=== PATIENT | female | born 1940 | race Caucasian/White ===

== ENCOUNTER → 2016-06-15 | Outpatient (CLI) | payer OTHER ==
[~2016-06-15] MED LIST: MULT-506 PO; OXYC-57 PO
[2016-06-15 12:48] LABS: BASO % 2.2 %; BASO ABS # 0.12 K/uL (0-0.2); COMPLETE YES; HEMATOCRIT 40.1 % (37-47); IG% 0.2 %; LYMPH % 36.3 %; LYMPH ABS # 1.95 K/uL (1.2-3.4); MEAN CELL VOLUME 96.6 fL (80-100); MEAN CORPUSCULAR HGB CONC 33.2 g/dl (32-36); MEAN PLATELET VOLUME 9.7 fL (7.4-10.4); MONO % 9.1 %; NEUT % 47.2 %; PLATELET COUNT 259 K/uL (130-400); RED BLOOD COUNT 4.15 M/uL (4.2-5.4); WHITE BLOOD COUNT 5.37 K/uL (4.8-10.8)
[2016-06-15 13:38] LABS: ESTIMATED AVERAGE GLUCOSE 128 mg/dl; HA1C FLAG Normal (Normal)
[2016-06-15 13:52] LABS: ALT/SGPT 21 U/L (12-78); AST/SGOT 15 U/L (15-37); BLOOD UREA NITROGEN 21 mg/dl (7-18); CALCIUM 8.8 mg/dl (8.5-10.1); CARBON DIOXIDE 28 mmol/L (21-32); CHLORIDE 107 mmol/L (98-107); CHOLESTEROL 190 mg/dl (0-200); CREATININE 0.74 mg/dl (0.60-1.20); GLUCOSE 95 mg/dl (70-99); POTASSIUM 4.1 mmol/L (3.5-5.1); SODIUM 141 mmol/L (136-145); TRIGLYCERIDES 77 mg/dl (0-150); VERY LOW DENSITY LIPOPROT CALC 15 mg/dl
[2016-06-15 13:56] LABS: ALB/GLOB RATIO 1.3 (0.9-2); ALKALINE PHOSPHATASE 78 U/L (45-117); CHOLESTEROL/HDL RATIO 3.1; HDL CHOLESTEROL 61 mg/dl
--- NOTE | 2016-06-25 06:26 | CODING QUERY MEDICAL NECESSITY ---
CQSUPPORTING DIAGNOSIS NEEDED A supporting diagnosis is required for the test/procedure performed on this patient in order for us to be reimbursed by the patient's insurance. Please provide a supporting diagnosis for the following test/procedure listed below next to the test name along with your signature. *If there is no additional diagnosis for this patient that would support the following test/procedure please document that below next to the test/procedure. Test(s)/Procedure(s) that require a supporting diagnosis: DOS 06/15/16 GLYCATED HEMOGLOBIN Provider Signature: Date: Thank you Adina Donovan [employer] Once completed, please kindly fax back to [phone] For questions please call [phone]
== END | disposition home or self-care (01) ==
LOC: C.LABSPEC 12:08
PROVIDERS: ATTEND Internal Medicine
DX: E78.5 Hyperlipidemia, unspecified (principal); R93.9 Diagnostic imaging inconclusive due to excess body fat of patient; E55.9 Vitamin D deficiency, unspecified; Z85.3 Personal history of malignant neoplasm of breast; Z12.4 Encounter for screening for malignant neoplasm of cervix; Z78.0 Asymptomatic menopausal state; R53.83 Other fatigue

== ENCOUNTER → 2016-06-15 | Outpatient (CLI) | payer OTHER | END | disposition home or self-care (01) | LOC: C.PAPS 14:59 | PROVIDERS: ATTEND Internal Medicine | DX: Z12.4 Encounter for screening for malignant neoplasm of cervix (principal); Z78.0 Asymptomatic menopausal state ==

== ENCOUNTER → 2016-06-16 | Outpatient (CLI) | payer OTHER | END | disposition home or self-care (01) | LOC: C.LABSPEC 12:31 | PROVIDERS: ATTEND Internal Medicine | DX: Z12.11 Encounter for screening for malignant neoplasm of colon (principal) ==

== ENCOUNTER → 2016-06-26 | Outpatient (CLI) | payer OTHER ==
--- NOTE | 2016-06-26 13:32 | MAMMOGRAPHY REPORT ---
UNILATERAL LEFT DIGITAL SCREENING MAMMOGRAM TOMOSYNTHESIS WITH CAD: 06/26/2016 CLINICAL HISTORY: Asymptomatic. Personal history of breast cancer. TECHNIQUE: Breast tomosynthesis in addition to standard 2D mammography was performed. Current study was also evaluated with a Computer Aided Detection (CAD) system. Left CC and MLO 2-D and tomosynth esis images were obtained. COMPARISON: Comparison is made to exams dated: 06/24/2015 mammogram, 06/19/2014 mammogram, 06/13/2013 m ammogram, 06/07/2012 mammogram, 06/02/2011 mammogram, and 05/27/2010 mammogram - [facility] enter. BREAST COMPOSITION: There are scattered areas of fibroglandular density in the left breast. FINDINGS: There are no suspicious masses, calcifications, or areas of architectural distortion note d in the left breast. There has been no significant interval change compared to prior exams. IMPRESSION: ACR BI-RADS CATEGORY 1: NEGATIVE There is no mammographic evidence of malignancy in the left breast. A 1 year screening mammogram is recommended. The patient will receive written notification of the results. Approximately 10% of breast cancers are not detected with mammography. A negative mammographic repor t should not delay biopsy if a clinically suggestive mass is present. Nuris Mckeon M.D. ah/:06/26/2016 07:36:13 Rock Loader: Corrie ARGUETA)(M), [facility] letter sent: Normal 1/2 BI-RADS Code: ACR BI-RADS Category 1: Negative
== END | disposition home or self-care (01) ==
LOC: C.MAMM 07:11
PROVIDERS: ATTEND Internal Medicine
DX: Z12.31 Encounter for screening mammogram for malignant neoplasm of breast (principal); Z85.3 Personal history of malignant neoplasm of breast; Z90.11 Acquired absence of right breast and nipple

== ENCOUNTER → 2017-06-15 | Outpatient (CLI) | payer OTHER ==
[2017-06-15 14:11] LABS: BASO % 1.9 %; BASO ABS # 0.11 K/uL (0-0.2); EOS % 4.6 %; EOS ABS # 0.26 K/uL (0-0.5); HEMATOCRIT 40.2 % (37-47); HEMOGLOBIN 13.2 g/dL (12.0-16.0); IG# 0.01 K/uL (0.00-0.02); LYMPH % 34.9 %; LYMPH ABS # 1.99 K/uL (1.2-3.4); MEAN CELL VOLUME 97.3 fL (80-100); MEAN CORPUSCULAR HGB CONC 32.8 g/dl (32-36); MEAN PLATELET VOLUME 9.6 fL (7.4-10.4); MONO % 8.8 %; NEUT % 49.6 %; NEUT ABS # 2.83 K/uL (1.4-6.5); PLATELET COUNT 269 K/uL (130-400); RED CELL DISTRIBUTION WIDTH CV 13.2 % (11.5-14.5); RED CELL DISTRIBUTION WIDTH SD 46.6 fL (36.4-46.3)
[2017-06-15 14:19] LABS: HEMOGLOBIN A1C 6.2 % (4.5-5.6)
[2017-06-15 14:43] LABS: ALBUMIN 3.7 gm/dl (3.4-5.0); ALT/SGPT 22 U/L (12-78); AST/SGOT 15 U/L (15-37); BLOOD UREA NITROGEN 17 mg/dl (7-18); CALCIUM 9.1 mg/dl (8.5-10.1); CARBON DIOXIDE 28 mmol/L (21-32); GLUCOSE 90 mg/dl (70-99); POTASSIUM 4.1 mmol/L (3.5-5.1); SODIUM 138 mmol/L (136-145)
[2017-06-15 14:46] LABS: ALKALINE PHOSPHATASE 80 U/L (45-117); CHOLESTEROL 195 mg/dl (0-200); LDL CHOLESTEROL (DIRECT) 119 mg/dl; TOTAL PROTEIN 7.2 gm/dl (6.4-8.2)
== END | disposition home or self-care (01) ==
LOC: C.LABSPEC 12:41
PROVIDERS: ATTEND Internal Medicine
DX: E78.5 Hyperlipidemia, unspecified (principal); R73.9 Hyperglycemia, unspecified; M81.0 Age-related osteoporosis without current pathological fracture

== ENCOUNTER → 2017-06-16 | Outpatient (CLI) | payer OTHER ==
[2017-06-23 19:00] LABS: FECAL OCCULT BLOOD #1 NEGATIVE (NEGATIVE); FECAL OCCULT BLOOD #2 NEGATIVE (NEGATIVE); FECAL OCCULT BLOOD #3 NEGATIVE (NEGATIVE)
== END | disposition home or self-care (01) ==
LOC: C.LABSPEC 16:30
PROVIDERS: ATTEND Internal Medicine
DX: Z12.11 Encounter for screening for malignant neoplasm of colon (principal)

== ENCOUNTER → 2017-07-01 | Outpatient (CLI) | payer OTHER ==
--- NOTE | 2017-07-01 14:44 | MAMMOGRAPHY REPORT ---
UNILATERAL LEFT DIGITAL SCREENING MAMMOGRAM TOMOSYNTHESIS WITH CAD: 07/01/2017 CLINICAL HISTORY: Asymptomatic. Personal history of breast cancer. TECHNIQUE: Breast tomosynthesis in addition to standard 2D mammography was performed. Current study was also evaluated with a Computer Aided Detection (CAD) system. COMPARISON: Comparison is made to exams dated: 06/26/2016 mammogram, 06/24/2015 mammogram, 06/19/2014 m ammogram, 06/13/2013 mammogram, 06/07/2012 mammogram, and 06/02/2011 mammogram - [facility]. BREAST COMPOSITION: There are scattered areas of fibroglandular density in the left breast. FINDINGS: There are no suspicious masses, calcifications, or areas of architectural distortion noted in the left breast. There has been no significant interval change compared to prior exams. Scatter ed benign-appearing calcifications are not significantly changed. IMPRESSION: ACR BI-RADS CATEGORY 2: BENIGN There is no mammographic evidence of malignancy in the left breast. A 1 year screening mammogram is r ecommended. The patient will receive written notification of the results. Approximately 10% of breast cancers are not detected with mammography. A negative mammographic report should not delay biopsy if a clinically suggestive mass is present. Nuris Mckeon M.D. ah/:07/01/2017 08:08:19 Interceptor Operator: Dorothy DOWNING(Nadia)(), [facility] letter sent: Normal 1/2 BI-RADS Code: ACR BI-RADS Category 2: Benign
== END | disposition home or self-care (01) ==
LOC: C.MAMM 07:46
PROVIDERS: ATTEND Internal Medicine
DX: Z12.31 Encounter for screening mammogram for malignant neoplasm of breast (principal)